=== PATIENT | male | born 1945 | race Caucasian/White ===

== ENCOUNTER 2018-03-29 20:10 | Emergency (ER) | payer MEDICARE ==
[~2018-03-29] VITALS: Ht 172.7 cm; Wt 70.3 kg
--- NOTE | 2018-03-29 20:33 | NUR ---
PT AMBULATED TO ER 1 WITH A STEADY GAIT. PT WAS WALKING CARRYING A BAG THAT HE THOUGHT RIPPED OPEN. WHEN HE WAS CHECKING OUT THE BAG HE TRIPPED AND HIT HIS HEAD ON THE DRIVEWAY. PT HAS AN ICE PACK TO HIS FOREHEAD.
--- NOTE | 2018-03-29 20:35 | NUR ---
DR. COLÓN IS AT THE BEDSIDE SPEAKING TO THE PT.
--- NOTE | 2018-03-29 20:47 | NUR ---
EKG IN PROGRESS AT THE BEDSIDE. NEW ICE PACK APPLIED TO PT'S FOREHEAD.
--- NOTE | 2018-03-29 20:57 | NUR ---
PT IS GOING TO CT VIA [facility]
--- NOTE | 2018-03-29 21:13 | NUR ---
PT RETURNED FROM CT.
--- NOTE | 2018-03-29 21:24 | NUR ---
DR COLÓN IS AT THE BEDSIDE EVALUATING THE PT'S NOSE.
--- NOTE | 2018-03-29 21:32 | NUR ---
DR COLÓN IS AT THE BEDSIDE APPLYING STERI STRIPS AND DERMABOND TO PT'S NOSE/FOREHEAD.
--- NOTE | 2018-03-29 22:19 | NUR ---
PT AMBULATED TO THE BATHROOM WITH A STEADY GAIT.
--- NOTE | 2018-03-29 23:50 | NUR ---
Patient discharged to home in stable condition. Written and verbal after care instructions given. Patient verbalizes understanding of instruction AND RX. PT REC'D A COPY OF ALL IMAGING RESULTS AND DISC. PT REC'D AN ICE PACK TO TAKE HOME. PT IS TAKING UBER HOME. VSS. NAD NOTED. PT IS AMBULATING WITH A STEADY GAIT.
[2018-03-30 00:20] VITALS: BP 145/78
== END 2018-03-30 00:22 | disposition home or self-care (01) ==
LOC: ER 20:19
DX: S02.2XXA Fracture of nasal bones, initial encounter for closed fracture (principal); S02.19XA Other fracture of base of skull, initial encounter for closed fracture; S00.83XA Contusion of other part of head, initial encounter; I10 Essential (primary) hypertension; F10.10 Alcohol abuse, uncomplicated; Y90.9 Presence of alcohol in blood, level not specified; Z98.890 Other specified postprocedural states; W18.09XA Striking against other object with subsequent fall, initial encounter; Y93.01 Activity, walking, marching and hiking; Y92.89 Other specified places as the place of occurrence of the external cause; Y99.8 Other external cause status
CPT/HCPCS: 12011; 70450; 70486; 72125; 93005; 99284; A4606; A6402; A6403; Z7610